=== PATIENT | female | born 1960 | race Caucasian/White ===

== ENCOUNTER 2020-07-01 11:50 | Emergency (ER) | payer OTHER ==
[~2020-07-01 11:50] MED LIST: ALBUTEROL2.5 MG/3 M INH; ASPIRIN CHEWABL81 MG PO; BENTYL 10MG CAP10 MG PO; CLEOCIN HCL300 MG PO; DITROPAN 5 MG TA5 MG PO; FLEXERIL 10 MG10 MG PO; HYDROCODON-ACE1 EAC3 PO; IBUPROFEN800 MG PO; KEFLEX CAP 500500 MG PO; KLONOPIN TAB 00.5 MG PO; LIPITOR TAB 2020 MG PO; MACROBID 100 M100 MG PO; NAPROSYN500 MG PO; NEURONTIN 400400 MG PO; NORCO 5-325 TA1 EACH PO; OMNICEF 300 MG300 MG PO; PLAVIX 75 MG TA75 MG PO; PYRIDIUM200 MG PO; TOPAMAX50 MG PO; Viscous lidocaine2% TOP; ZANTAC150 MG PO; ZOFRAN ODT 4 MG4 MG PO; ZOFRAN4 MG PO
[2020-07-01 12:54] LABS: HEMOGLOBIN 14.1 gm/dl (12.3-15.3); RED BLOOD COUNT 4.7 M/UL (4.00-5.10); WHITE BLOOD COUNT 5.6 K/UL (4.5-11.0)
[2020-07-01 13:32] LABS: BUN/CREATININE RATIO 21 (0-10)
== END 2020-07-01 16:24 | disposition left against medical advice (07) ==
LOC: ER1 11:50 → CDU 16:07 → ER1 16:07
PROVIDERS: Emergency Medicine
DX: R07.89 Other chest pain (principal); I25.2 Old myocardial infarction; I25.10 Atherosclerotic heart disease of native coronary artery without angina pectoris; E78.5 Hyperlipidemia, unspecified; F41.9 Anxiety disorder, unspecified; G89.29 Other chronic pain; G43.709 Chronic migraine without aura, not intractable, without status migrainosus; F17.200 Nicotine dependence, unspecified, uncomplicated; Z88.8 Allergy status to other drugs, medicaments and biological substances; Z91.040 Latex allergy status; Z95.5 Presence of coronary angioplasty implant and graft; Z53.20 Procedure and treatment not carried out because of patient's decision for unspecified reasons
CPT/HCPCS: 71045; 80053; 82550; 82553; 83874; 84484; 85025; 85379; 93005; 99285

== ENCOUNTER → 2020-08-19 | Outpatient (CLI) | payer OTHER ==
[2020-08-19 16:08] LABS: HEMOGLOBIN 12.8 gm/dl (12.3-15.3); RED BLOOD COUNT 4.32 M/UL (4.00-5.10); WHITE BLOOD COUNT 4.7 K/UL (4.5-11.0)
[2020-08-19 17:15] LABS: BUN/CREATININE RATIO 25 (0-10)
[2020-08-20 08:14] LABS: VITAMIN D, 25-HYDROXY 36.7 ng/mL (30.0-100.0)
[2020-08-20 10:14] LABS: HBSAG SCREEN Negative (Negative); HEP A AB, IGM Negative (Negative); HEP B CORE AB, IGM Negative (Negative); HEP C VIRUS AB <0.1 (0.0-0.9)
[2020-08-20 11:14] LABS: ANTISTREPTOLYSIN O AB 33.2 IU/mL (0.0-200.0); RHEUMATOID ARTHRITIS FACTOR <10.0 IU/mL (0.0-13.9)
== END ==
LOC: LAB 13:23
PROVIDERS: Nurse Practitioner Family
DX: Z00.00 Encounter for general adult medical examination without abnormal findings (principal); M19.90 Unspecified osteoarthritis, unspecified site; R53.83 Other fatigue; I10 Essential (primary) hypertension; E03.9 Hypothyroidism, unspecified; M25.50 Pain in unspecified joint; Z79.899 Other long term (current) drug therapy
CPT/HCPCS: 36415; 80053; 80061; 80074; 82150; 82607; 82728; 82746; 83540; 83550; 83690; 84443; 84550; 85027; 85652; 86038; 86060; 86140; 86431

== ENCOUNTER 2020-11-10 11:48 | Emergency (ER) | payer OTHER | END 2020-11-10 16:07 | disposition home or self-care (01) | LOC: ER1 11:48 | DX: S09.90XA Unspecified injury of head, initial encounter (principal); S16.1XXA Strain of muscle, fascia and tendon at neck level, initial encounter; S76.012A Strain of muscle, fascia and tendon of left hip, initial encounter; W22.8XXA Striking against or struck by other objects, initial encounter; F17.200 Nicotine dependence, unspecified, uncomplicated; Z91.040 Latex allergy status; Z91.041 Radiographic dye allergy status | CPT/HCPCS: 70450; 72125; 72170; 99284 ==

== ENCOUNTER 2020-11-13 14:03 | Emergency (ER) | payer OTHER | END 2020-11-13 16:13 | disposition home or self-care (01) | LOC: ER1 14:03 | DX: S61.215A Laceration without foreign body of left ring finger without damage to nail, initial encounter (principal); F17.200 Nicotine dependence, unspecified, uncomplicated; W26.0XXA Contact with knife, initial encounter; Y92.009 Unspecified place in unspecified non-institutional (private) residence as the place of occurrence of the external cause; Z23 Encounter for immunization | CPT/HCPCS: 12001; 73140; 90471; 90715; 96372; 99283; J1885 ==

== ENCOUNTER 2021-05-22 13:57 | Emergency (ER) | payer OTHER ==
[2021-05-22] MEDS ORDERED: POLYTRIM EYE DR10 ML OS (14:34)
== END 2021-05-22 14:42 | disposition home or self-care (01) ==
LOC: ER1 13:57
DX: H00.11 Chalazion right upper eyelid (principal); F17.200 Nicotine dependence, unspecified, uncomplicated; Z91.048 Other nonmedicinal substance allergy status; Z91.040 Latex allergy status
CPT/HCPCS: 99283

== ENCOUNTER → 2021-07-05 | Outpatient (CLI) | payer OTHER ==
[~2021-07-05] MED LIST changes: +POLYTRIM EYE DR10 ML OS
== END ==
LOC: RAD 16:26
DX: M54.2 Cervicalgia (principal); R05.9 Cough, unspecified; M25.511 Pain in right shoulder; M54.6 Pain in thoracic spine; M54.50 Low back pain, unspecified; M85.88 Other specified disorders of bone density and structure, other site; M47.816 Spondylosis without myelopathy or radiculopathy, lumbar region; M19.011 Primary osteoarthritis, right shoulder; Z87.81 Personal history of (healed) traumatic fracture; R91.8 Other nonspecific abnormal finding of lung field
CPT/HCPCS: 71046; 72050; 72072; 72110; 73030

== ENCOUNTER 2021-07-08 16:16 | Emergency (ER) | payer OTHER ==
[2021-07-08 17:38] LABS: HEMOGLOBIN 13.7 gm/dl (12.3-15.3); RED BLOOD COUNT 4.57 M/UL (4.00-5.10); WHITE BLOOD COUNT 4.4 K/UL (4.5-11.0)
== END 2021-07-08 21:45 | disposition home or self-care (01) ==
LOC: ER1 16:16
PROVIDERS: Physician Assistant
DX: J02.9 Acute pharyngitis, unspecified (principal); F17.200 Nicotine dependence, unspecified, uncomplicated; Z20.822 Contact with and (suspected) exposure to COVID-19; I25.2 Old myocardial infarction; Z91.040 Latex allergy status; Z91.041 Radiographic dye allergy status
CPT/HCPCS: 0240U; 80048; 81001; 85025; 86403; 87081; 87086; 87880; 99283

== ENCOUNTER 2021-09-01 17:53 | Emergency (ER) | payer OTHER ==
[2021-09-01 19:52] LABS: BUN/CREATININE RATIO 19 (0-10)
[2021-09-01] MEDS ORDERED: IBUPROFEN800 MG PO (21:47)
[2021-09-01] MEDS ORDERED: CYCLOBENZAPRINE10 MG PO (21:47)
[2021-09-01 21:56] LABS: HEMOGLOBIN 12.8 gm/dl (12.3-15.3); RED BLOOD COUNT 4.29 M/UL (4.00-5.10)
== END 2021-09-01 22:43 | disposition home or self-care (01) ==
LOC: ER1 17:53
PROVIDERS: Preventive Medicine Occupational Medicine
DX: R07.89 Other chest pain (principal); M54.2 Cervicalgia; Z20.822 Contact with and (suspected) exposure to COVID-19; G89.29 Other chronic pain; F41.9 Anxiety disorder, unspecified; I25.10 Atherosclerotic heart disease of native coronary artery without angina pectoris
CPT/HCPCS: 71045; 72125; 80053; 81001; 82550; 82553; 83690; 83880; 84439; 84443; 84484; 85025; 86140; 87086; 93005; 96374; 99285; J1885; U0002

== ENCOUNTER 2022-01-11 12:16 | Emergency (ER) | payer OTHER ==
[~2022-01-11 12:16] MED LIST changes: +CYCLOBENZAPRINE10 MG PO
== END 2022-01-11 13:30 | disposition left against medical advice (07) ==
LOC: ER1 12:16
DX: Z53.21 Procedure and treatment not carried out due to patient leaving prior to being seen by health care provider (principal)

== ENCOUNTER 2022-01-17 12:38 | Emergency (ER) | payer OTHER ==
[2022-01-17 13:46] LABS: HEMOGLOBIN 13.8 gm/dl (12.3-15.3); RED BLOOD COUNT 4.59 M/UL (4.00-5.10); WHITE BLOOD COUNT 6.7 K/UL (4.5-11.0)
[2022-01-17 14:42] LABS: BUN/CREATININE RATIO 21 (0-10)
== END 2022-01-17 18:00 | disposition left against medical advice (07) ==
LOC: ER1 12:38
DX: R07.9 Chest pain, unspecified (principal)
CPT/HCPCS: 71045; 80053; 82550; 82553; 84484; 85025; 93005; 99281

== ENCOUNTER 2022-03-09 13:39 | Emergency (ER) | payer OTHER ==
[2022-03-09 14:14] LABS: HEMOGLOBIN 13.3 gm/dl (12.3-15.3); RED BLOOD COUNT 4.39 M/UL (4.00-5.10); WHITE BLOOD COUNT 5.6 K/UL (4.5-11.0)
[2022-03-09 14:41] LABS: BUN/CREATININE RATIO 23 (0-10)
== END 2022-03-09 16:08 | disposition left against medical advice (07) ==
LOC: ER1 13:39
PROVIDERS: Emergency Medicine
DX: Z53.21 Procedure and treatment not carried out due to patient leaving prior to being seen by health care provider (principal)
CPT/HCPCS: 80053; 82550; 82553; 84484; 85025; 93005